=== PATIENT | female | born 2000 | race Hispanic/Latino ===

== ENCOUNTER 2024-11-22 21:28 | Emergency (ER) | payer OTHER, SELFPAY ==
[2024-11-22 21:31] VITALS: BP 127/93
[2024-11-22 21:54] LABS: Urine Character Clear (Clear)
[2024-11-22 21:55] LABS: Hematocrit 38.6 % (37.0-47.0); Hemoglobin 13.0 g/dL (12.0-16.0); Mean Corp Hgb Conc. 33.7 g/dL (33.0-37.0); Mean Corpuscular Volume 87.9 fL (81.0-99.0); Nucleated Red Blood Cells % 0 %; Platelet Count 265 10^3/uL (130-400); Red Cell Dist. Width 12.9 % (11.5-14.5)
[2024-11-22 22:04] LABS: Urine White Cell 90-100 /HPF (0-5)
[2024-11-22 22:06] LABS: HCG, Serum Qualitative Screen Negative
[2024-11-22 22:11] LABS: ALT (SGPT) 14 U/L (0-35); AST (SGOT) 19 U/L (14-36); Albumin 4.5 g/dl (3.5-5.0); Alkaline Phosphatase 50 U/L (38-126); Blood Urea Nitrogen 10 mg/dl (7-17); Calcium 9.5 mg/dl (8.4-10.2); Carbon Dioxide 26 mmol/L (22-30); Chloride 104 mmol/L (98-107); Estimated Creatinine Clearance 124 ml/min; Glucose 92 mg/dl (70-99); Potassium 3.9 mmol/L (3.5-5.1); Sodium 136 mmol/L (135-145); Total Protein 7.9 g/dl (6.3-8.2); eGFR > 60.00
--- NOTE | 2024-11-23 00:26 | ED.GENMED ---
History of Present Illness
General
Chief Complaint: Urinary Symptoms
Source: patient
Exam Limitations: none
Time Seen by Provider: 11/23/24 00:22
Nursing documentation reviewed up to this point in time: agreed with
History of Present Illness
History of Present Illness:
Note:
CHIEF COMPLAINT(S)
back pain and urinary tract infection.
HISTORY OF PRESENT ILLNESS
The patient is a 24-year-old female with past medical history of asthma who presents with symptoms suggestive of a urinary tract infection for the past week, which now includes pain in the back. The patient reports that she has been having burning
with urination and increased urinary frequency. The patient sought care today from her family doctor and was started on ciprofloxacin. She took 1 dose of this. She describes the pain as worsening and primarily located in the back, particularly the
left side, but it sometimes radiates to the abdomen, causing bloating. She denies any history of kidney stones or previous kidney infections. She denies any fevers or chills. There is no nausea or vomiting, and she noted exacerbation of pain with
certain movements. 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 She denied any recent vaginal discharge. Her last menstrual period was 3 weeks ago. She denies
any history of intra-abdominal surgeries other than . Patient denies any injury to the back. She denies any heavy lifting.
ADDITIONAL HISTORY OBTAINED FROM SOURCES OTHER THAN THE PATIENT
The patient mentioned seeing her family doctor today who suggested possible spread of infection to the kidneys and planned for further investigations including a CAT scan.
PHYSICAL EXAM
Nursing notes reviewed and vital signs reviewed.
General: Patient is well appearing and in no acute distress; non-toxic
Skin: Warm and dry, no rashes or lesions
Head: Normocephalic, atraumatic
Eyes: Sclera non-icteric. EOMs intact.
Cardiac: Regular rate and rhythm, no murmurs
Peripheral Vascular: No lower extremity swelling or edema
Pulm: Normal respiratory effort
Abdomen: No abdominal tenderness to palpation, left-sided CVA tenderness noted
Musculoskeletal: No midline spinal tenderness
Neuro: CN II-XII intact, no focal neurologic deficits.
Psychiatric: Appropriate mood and affect.
PLAN
- Toradol, IV fluids
- CT scan abdomen pelvis with IV contrast
- Urinalysis, urine screen
DIFFERENTIAL DIAGNOSIS
The Differential Diagnosis includes, in no particular order and is not limited to:
1. Pyelonephritis
2. Urinary tract infection
3. Kidney stones
4. Musculoskeletal pain
5. Gastroenteritis
6. Appendicitis
7. Ovarian cysts
8. Pelvic inflammatory disease
9. Constipation
10. Ectopic
CHART REVIEW
Reviewed discharge summary from L&D from 06/29/2020 patient seen for primary section and had an uncomplicated course
Reviewed ER physician documentation from 01/15/2020 patient seen for sore throat and rhinorrhea in the setting of and was discharged with unremarkable workup
MDM/DISPOSITION
This is a 24-year-old female who presents emergency department today with concerns of UTI symptoms for the past week and flank pain abdominal pain starting today. She saw her primary care provider who diagnosed her with a UTI and started her on
ciprofloxacin. She would have 1 dose of this starting today. She has no fevers or chills or nausea or vomiting. Plan as above, physical exam she is afebrile but does have some left-sided CVA tenderness. Labs reviewed, CBC and CMP unremarkable,
urinalysis concerning for infection. She went for CT scan of the abdomen and pelvis which did not show any obstructive uropathy, there were no signs of acute abnormality within the abdomen pelvis. Suspect pyelonephritis. No indication for
admission at this time. Patient given a dose of Rocephin here in the ER and will be discharged home on a 10-day course of cefoxitin. Strict return precautions discussed. Patient stable for discharge.
Past History
Past History
ED Past Medical History: Asthma
Review of Systems
Review of Systems
All Other Systems: ROS reviewed and negative except as documented in HPI and ROS
Phy Exam
Physical Exam
Physical Exam:
see hpi
Course
Orders/Labs/Results
Orders:
Orders
11/22/24 21:40
Test Result ONCE
11/22/24 21:50
Complete Blood Count/With Diff Urgent
Comprehensive Metabolic Panel Urgent
HCG, Serum Qualitative Screen Urgent
Urinalysis Reflex To Culture Urgent
Date Specimen was Collected: 11/22/24
Time Specimen was Collected: 21:40
Urine Microscopic Reflex Cult Urgent
Urine Culture Urgent
FARHAN Source: U
Specimen Description:
Date Specimen was Collected: 11/22/24
Time Specimen was Collected: 21:40
11/23/24 00:33
0.9% Sodium Chloride 500 ml [Nss] 500 ml IV BOLUS
Ketorolac [Toradol] 15 mg IV NOW STA
11/23/24 00:34
CT Abd/pel Without Iv Or Oral Urgent
Comment:
Reason For Exam: left sided flank pain
11/23/24 03:10
CefTRIAXone [Rocephin] 1,000 mg IV NOW STA
Abnormal Lab Results
11/22/24
21:50
MPV 10.5 H fL
(7.4-10.4)
Abs Immat Gran (auto) 0.1 H 10^3/uL
(0-0.05)
Absolute Monos (auto) 0.8 H 10^3/uL
(0.1-0.6)
Ur Occult Blood Reflex 1+ A
(Negative)
Leukocyte Esterase Rfl 3+ A
(Negative)
Urine RBC 3-6 A /HPF
(0-2)
Urine WBC (Reflex) 90-100 A /HPF
(0-5)
Urine Bacteria (Reflex) Few A
(Negative)
11/22/24 21:50
11/22/24 21:50
Vital Signs
Temp: 98.6 F
Initial and Last Documented VS:
Initial Vital Signs
Temp Pulse Resp BP Pulse Ox
99.6 F 99 20 127/93 100
11/22/24 21:31 11/22/24 21:31 11/22/24 21:31 11/22/24 21:31 11/22/24 21:31
Last Documented Vital Signs
Temp Pulse Resp BP Pulse Ox
98.6 F 69 16 106/75 97
11/23/24 03:12 11/23/24 02:40 11/23/24 02:40 11/23/24 02:40 11/23/24 02:40
*Pulse Oximetry
SaO2: 100
Oxygen Mode of Delivery: Room air
Patient hypoxic: no
*Critical Care Note
Total Time (30-74mins, 75-104mins- exclusive of procedures): Not Applicable
ED Attending Note
-
Portions of this chart may have been created with voice recognition software.� Occasional wrong word or��sound alike� substitutions may have occurred due to the inherent limitations of voice recognition software.
Discharge Plan
Departure
Patient Disposition: Home (Routine Discharge)
Date of Disposition: 11/23/24
Time of Disposition: 03:16
Patient with high blood pressure during this ER visit?: No
Condition: Good
Discharge Problem:
Acute pyelonephritis
Instructions: Urinary Tract Infection, Adult (DC)
Prescriptions:
New
cefpodoxime 200 mg tablet
200 mg PO BID 10 Days Qty: 20 0RF
No Action
PNV no.95-ferrous fumarate-FA [] 1 EACH tablet
1 ea PO DAILY
ferrous sulfate [iron] 325 MG tablet
325 mg PO DAILY
ferrous sulfate [FeroSul] 325 MG tablet
325 mg PO BID 0RF
ibuprofen 600 MG tablet
600 mg PO Q4HPRN PRN (Reason: cramps) Qty: 90 0RF
Referrals:
UNKNOWN - PT DOES,NOT KNOW [Unknown Provider]
Activity Restrictions/Additional Instructions:
You can take ibuprofen [id number]. You can take 400 to 600 mg every 6 hours as needed. Please do not exceed 3200 mg/day.
Your CT scan shows no acute intra-abdominal abnormalities.
Please follow up with your primary care provider in one week.
You are given a dose of Rocephin in the emergency department. Please stop taking your prior antibiotic. Please start taking cefpodoxime, please take 1 tab twice daily for 10 days.
PLEASE RETURN TO THE ER IMMEDIATELY SHOULD SHE DEVELOP ANY ACUTE WORSENING OR SYMPTOMS, FEVERS, CHILLS, INTRACTABLE NAUSEA OR VOMITING, ANY OTHER SIGNS OR SYMPTOMS WORRISOME TO YOU!
Interventions
Interventions:
*Risk Screen - Suicide Last Done: 11/22/24 21:31
*General Assessment Last Done: 11/22/24 21:31
*Neglect/Abuse Screening Last Done: 11/22/24 21:31
*ED- Fall Risk Assessment Last Done: 11/22/24 21:31
*ED COVID-19 Vaccine History Last Done: 11/22/24 21:31
*Nursing Disposition Last Done: 11/23/24 03:27
ED-Female Genitourinary Assessment Last Done: 11/23/24 00:15
Discharge Date and Time
Discharge Date/Time: 11/23/24 03:28
Print Language: CHINESE
[2024-11-23] MEDS: NSS 500 IV (00:40)
[2024-11-23] MEDS: TORADOL 15 MG IV (00:40)
[2024-11-23 00:42] VITALS: BP 114/77
[2024-11-23 02:40] VITALS: BP 106/75
[2024-11-23] MEDS: ROCEPHIN 1000 MG IV (03:19)
== END 2024-11-23 03:28 | disposition home or self-care (01) ==
LOC: EMR 21:28
PROVIDERS: EMERGENCY PHYSICIAN Emergency Medicine; FAMILY PHYSICIAN Internal Medicine
DX: N10 Acute pyelonephritis (principal); J45.909 Unspecified asthma, uncomplicated
CPT/HCPCS: 96374; 96375; 96361; 99284; 74176; 80053; 81003; 81015; 84703; 85025; 87086